=== PATIENT | male | born 1970 | race Caucasian/White ===

== ENCOUNTER → 2024-05-02 15:08 | Outpatient (BNVA) | payer BC, SELFPAY | PROVIDERS: Family Provider Nurse Practitioner Family; PCP Nurse Practitioner Family; Visit Provider Nurse Practitioner Family | DX: Z12.5 Encounter for screening for malignant neoplasm of prostate (principal); M25.50 Pain in unspecified joint; I25.10 Atherosclerotic heart disease of native coronary artery without angina pectoris | CPT/HCPCS: 73130; 80053; 80061; 82306; 82607; 83735; 84443; 84550; 85025; 85651; 86038; 86140; 86200; 86431; G0103 ==

== ENCOUNTER → 2024-05-07 08:44 | Outpatient (BNVA) | payer BC, SELFPAY | PROVIDERS: Family Provider Nurse Practitioner Family; PCP Nurse Practitioner Family; Visit Provider Nurse Practitioner Family | DX: I25.10 Atherosclerotic heart disease of native coronary artery without angina pectoris (principal) | CPT/HCPCS: 80061; 80076 ==

== ENCOUNTER → 2024-08-14 10:42 | Outpatient (BNVA) | payer OTHER, SELFPAY | PROVIDERS: PCP Nurse Practitioner Family; Visit Provider Nurse Practitioner Family | DX: E55.9 Vitamin D deficiency, unspecified (principal) | CPT/HCPCS: 80053; 82306; 82607 ==

== ENCOUNTER → 2024-11-23 09:02 | Outpatient (BNVA) | payer OTHER, SELFPAY | PROVIDERS: PCP Nurse Practitioner Family; Visit Provider Nurse Practitioner Family | DX: I10 Essential (primary) hypertension (principal) | CPT/HCPCS: 80053; 80061; 82306; 82607; 84443; 85025 ==

== ENCOUNTER → 2025-04-16 10:09 | Outpatient (BNVA) | payer OTHER, SELFPAY | PROVIDERS: PCP Nurse Practitioner Family; Visit Provider Nurse Practitioner Family | DX: I10 Essential (primary) hypertension (principal); E55.9 Vitamin D deficiency, unspecified | CPT/HCPCS: 80053; 80061; 82306; 82607; 83735; 84443; 85025 ==

== ENCOUNTER 2025-04-22 15:50 | Outpatient (CLI) | payer OTHER, SELFPAY ==
--- NOTE | 2025-04-22 16:15 | USR_ITS ---
PROCEDURE INFORMATION: Exam: US Right Limited Joint or Other Non-Vascular Extremity Structure Exam date and time: 04/22/2025 4:06 PM Age: 54 years old Clinical indication: Mass or lump; Other: Low back; Additional info: M54.50 - low back pain, unspecified TECHNIQUE: Imaging protocol: US right limited joint or other nonvascular extremity structure. Real-time ultrasound with image documentation. Exam focused on the area of clinical interest. COMPARISON: No relevant prior studies available. FINDINGS: Soft tissues: Ultrasound area of interest right lower back examined with ultrasound. Muscle and fat planes intact. No demonstrable mass. No abnormal fluid collections. US/US soft tissue/extremity [id number] IMPRESSION: Unremarkable ultrasound of the right lower back.
== END 2025-04-22 15:51 | disposition home or self-care (01) ==
LOC: RAD 15:51
PROVIDERS: PCP Nurse Practitioner Family; Visit Provider Nurse Practitioner Family
DX: M54.50 Low back pain, unspecified (principal)
CPT/HCPCS: 76882